=== PATIENT | female | born 1985 | race Caucasian/White ===

== ENCOUNTER 2016-11-12 09:53 | Emergency (ER) | payer SELFPAY ==
[~2016-11-12] VITALS: Ht 162.6 cm; Wt 108.5 kg
[2016-11-12 10:04] VITALS: BP 137/93
== END 2016-11-12 13:42 | disposition left against medical advice (07) ==
LOC: EME 09:53
PROC: 3E0T3BZ Introduction of Anesthetic Agent into Peripheral Nerves and Plexi, Percutaneous Approach (ICD-10-PCS; principal; 2016-11-12)
DX: K02.9 Dental caries, unspecified (principal)
CPT/HCPCS: 99281

== ENCOUNTER 2017-05-25 09:50 | Emergency (ER) | payer OTHER ==
[2017-05-25] MEDS ORDERED: PEN-VEE K,VEET500 MG PO (11:22)
[2017-05-25] MEDS ORDERED: ULTRAM50 MG PO (11:22)
[2017-05-25 12:04] VITALS: BP 156/93
== END 2017-05-25 12:12 | disposition home or self-care (01) ==
LOC: EME 09:50
PROC: 3E0T3BZ Introduction of Anesthetic Agent into Peripheral Nerves and Plexi, Percutaneous Approach (ICD-10-PCS; principal; 2017-05-25)
DX: K02.9 Dental caries, unspecified (principal); S02.5XXA Fracture of tooth (traumatic), initial encounter for closed fracture; X58.XXXA Exposure to other specified factors, initial encounter
CPT/HCPCS: 99281; 99284